=== PATIENT | female | born 1995 | race American Indian/Alaskan Native ===

== ENCOUNTER 2019-07-17 11:38 | Outpatient (CLI) | payer OTHER ==
[2019-07-17] MEDS ORDERED: ASPIR 8181 MG PO (12:19)
[2019-07-17] MEDS ORDERED: PRENATAL CAPLE1 EAC1 PO (12:19)
== END 2019-07-17 21:08 | disposition home or self-care (01) ==
LOC: OBS/DEL 11:38
DX: O26.893 Other specified pregnancy related conditions, third trimester (principal); R10.2 Pelvic and perineal pain

== ENCOUNTER 2019-09-29 16:33 | Inpatient (IN) | payer OTHER ==
[~2019-09-29] VITALS: Ht 165.1 cm; Wt 3.2 kg
[~2019-09-29 16:33] MED LIST: ASPIR 8181 MG PO; PRENATAL CAPLE1 EAC1 PO
== END 2019-10-02 16:24 | disposition home or self-care (01) | DRG 788 ==
LOC: LDR 16:33 → O/R 09-30 10:35 → OB/GYN 09-30 13:17
PROVIDERS: ADMIT Obstetrics & Gynecology
PROC: 3E0P7VZ Introduction of Hormone into Female Reproductive, Via Natural or Artificial Opening (ICD-10-PCS; 2019-09-29)
PROC: 3E033VJ Introduction of Other Hormone into Peripheral Vein, Percutaneous Approach (ICD-10-PCS; 2019-09-29)
PROC: 4A1HXCZ Monitoring of Products of Conception, Cardiac Rate, External Approach (ICD-10-PCS; 2019-09-29)
PROC: 10D00Z1 Extraction of Products of Conception, Low, Open Approach (ICD-10-PCS; principal; 2019-09-30 10:00)
DX: O61.0 Failed medical induction of labor (principal); Z3A.39 39 weeks gestation of pregnancy; Z37.0 Single live birth